=== PATIENT | male | born 1955 | race Caucasian/White ===

== ENCOUNTER 2019-12-31 11:57 | Outpatient (CLI) | payer OTHER, SELFPAY ==
--- NOTE | 2019-12-31 13:30 | CT_ITS ---
WS: [id number] CT ABDOMEN PELVIS TECHNIQUE: Noncontrast CT of the abdomen and pelvis with coronal and sagittal reformatted images. CLINICAL INFORMATION: h/o multiple hernias COMPARISON: DLP: 1066.[address] scans at [facility] use at least one of these dose optimization techniques: automat ed exposure control; mA and/or kV adjustment per patient size (includes targeted exams where dose is matched to clinical indication); or iterative reconstruction. FINDINGS: Noncontrast liver is normal. Normal gallbladder. Normal noncontrast spleen. Left nephrectomy. Adrenal glands are normal. No hydronephrosis in right kidney. Increased attenuation right renal lesion likel y hemorrhagic cyst measuring 8 mm. Fatty atrophy of the pancreas. Normal caliber abdominal aorta with mild aortic calcification. Normal GE junction. Lung bases are well aerated. Prior postoperative changes sigmoid colon. No evidence of acute diverticulitis. Transverse colon and sigmoid colon fecal retention. No free fluid in the abdomen or pelvis. Somewhat prominent prostate me asuring 4.1 CM. No ventral abdominal wall hernia. Grade 1 anterolisthesis L5 on S1. Disc space narrow ing with endplate sclerosis. CT/CT abdomen pelvis wo con [id number] IMPRESSION: 1. No significant ventral abdominal wall hernia. 2. Normal noncontrast liver and gallbladder. 3. Prior nephrectomy. 4. No hydronephrosis in right kidney. Increased attenuation right renal lesion measuring 8 mm likely hemorrhagic renal cyst. 5. Normal caliber abdominal aorta. 6. Mild sigmoid and transverse colon constipation. 7. Prominent prostate measuring 4.1 CM. 8. Prior postoperative changes sigmoid colon.
[2019-12-31] MEDS: iohexol 300 mg/mL 50 mL Btl PO (13:39)
== END 2019-12-31 11:58 | disposition home or self-care (01) ==
LOC: RADWPI 12:01
PROVIDERS: PCP Family Medicine; Visit Provider Surgery
DX: K40.90 Unilateral inguinal hernia, without obstruction or gangrene, not specified as recurrent (principal); K59.00 Constipation, unspecified; N40.0 Benign prostatic hyperplasia without lower urinary tract symptoms
CPT/HCPCS: 74176; Q9967